=== PATIENT | female | born 1990 | race Caucasian/White ===

== ENCOUNTER 2016-11-15 12:40 | Emergency (ER) | payer SELFPAY ==
[~2016-11-15] VITALS: Ht 162.6 cm; Wt 57.0 kg
[2016-11-15 12:42] VITALS: BP 107/69; PULSE 79; RESP 20; TEMP 98.6; O2SAT 99
[2016-11-15] MEDS ORDERED: PENI250T PO (13:58)
--- NOTE | 2016-11-15 13:58 | PD ---
HPI Chief Complaint: Oral / Dental Pain or Problem Time Seen by Provider: 13:53 Travel History International Travel<30 days: No Contact w/Intl Traveler<30days: No Traveled to known affect area: No History of Present Illness HPI 26-year-old female with chief complaint of right upper dental pain 4 days. Patient reports she has a decayed and cracked tooth at the site. She denies fever, chills, headache. Patient reports the pain as constant, nonradiating. No aggravating or alleviating factors. Severity 6 out of 10. PFSH Past Medical History Medical History: Denies Significant Hx Respiratory: Yes (ASTHMA) ?: Not Social History Tobacco Use: No Allergies-Medications (Allergen,Severity, Reaction): Coded Allergies: No Known Allergies (Unverified , 11/15/16) Review of Systems Except as stated in HPI: all other systems reviewed are Neg Physical Exam Narrative GENERAL: Well-nourished, well-developed patient. SKIN: Focused skin assessment warm/dry. HEAD: Normocephalic. EYES: No scleral icterus. No injection or drainage. NECK: Supple, trachea midline. No JVD or lymphadenopathy. MOUTH: Tooth #2 decayed and fractured with surrounding gum erythema CARDIOVASCULAR: Regular rate and rhythm without murmurs, gallops, or rubs. RESPIRATORY: Breath sounds equal bilaterally. No accessory muscle use. Data Data Last Documented VS Vital Signs Date Time Temp Pulse Resp B/P Pulse Ox O2 Delivery O2 Flow Rate FiO2 11/15/16 12:42 98.6 79 20 107/69 99 Room Air MDM Medical Decision Making Medical Screen Exam Complete: Yes Emergency Medical Condition: Yes Differential Diagnosis Dental caries, dental abscess, dental pain Narrative Course 26-year-old female with chief complaint of right upper dental pain at the site of a decayed and cracked tooth. Symptom onset 4 days ago. Physical exam is reassuring. Patient has widespread dental decay. Tooth #2 is decayed cracked with surrounding gum erythema. Patient put on antibiotics instructed to take Motrin follow-up with dentist. Diagnosis Primary Impression: Pain, dental Referrals: Primary Care Physician Departure Forms: Tests/Procedures, Work Release Enter return to work date: Nov 16, 2016 Additional Instructions: Take [id number] Motrin [id number] milligrams by mouth every 6-8 hours as needed for pain. Take antibiotics as prescribed. Make an appointment for follow-up with dentist. Scripts Penicillin V Potassium 250 Mg [id number] Mg PO Q6H #28 TAB Prov:Shannon Tellez 11/15/16 Disposition: 01 DISCHARGE HOME Condition: Stable Shannon Tellez Nov 15, 2016 13:58
== END 2016-11-15 14:52 | disposition home or self-care (01) ==
LOC: NEPK 12:40
DX: K08.89 Other specified disorders of teeth and supporting structures (principal); K02.9 Dental caries, unspecified; J45.909 Unspecified asthma, uncomplicated
CPT/HCPCS: 99283

== ENCOUNTER 2017-01-30 12:29 | Emergency (ER) | payer OTHER ==
[~2017-01-30] VITALS: Ht 162.6 cm; Wt 57.0 kg
[~2017-01-30 12:29] MED LIST: PENI250T PO
[2017-01-30 12:33] VITALS: BP 133/84; PULSE 71; RESP 12; TEMP 98.2; O2SAT 99
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
[2017-01-30] MEDS ORDERED: PROM25TA10 PO (14:36)
[2017-01-30] MEDS ORDERED: IBUP-232 PO (14:36)
[2017-01-30] MEDS ORDERED: MAPA500T13 PO (14:36)
== END 2017-01-30 14:45 | disposition home or self-care (01) ==
LOC: NEPK 12:29
DX: S06.0X0A Concussion without loss of consciousness, initial encounter (principal); V89.2XXA Person injured in unspecified motor-vehicle accident, traffic, initial encounter
CPT/HCPCS: 70450; 99284

== ENCOUNTER 2017-02-07 15:22 | Emergency (ER) | payer MEDICAID, OTHER ==
[~2017-02-07] VITALS: Ht 162.6 cm; Wt 60.0 kg
[~2017-02-07 15:22] MED LIST changes: +IBUP-232 PO; +MAPA500T13 PO; +PROM25TA10 PO
[2017-02-07 15:25] VITALS: BP 149/83; PULSE 91; RESP 16; TEMP 98.5; O2SAT 98
--- NOTE | 2017-02-07 17:03 | PD ---
HPI Chief Complaint: Abdominal Pain Time Seen by Provider: 16:08 Travel History International Travel<30 days: No Contact w/Intl Traveler<30days: No Traveled to known affect area: No History of Present Illness HPI Patient is 40 years old. She arrives complaining of pain in the left lower quadrant. She reports a diagnosis of tubo-ovarian abscess made at [facility]. She took antibiotics. She does not remember the type of antibiotic however began vomiting and is unable to tolerate antibiotics. She denies abnormal discharge or bleeding. She denies vaginal discharge. Last menstruation was 2 weeks prior. [facility] Past Medical History Respiratory: Yes (ASTHMA) ?: Unknown LMP: JAN 24 Social History Alcohol Use: No Tobacco Use: Yes Substance Use: No Allergies-Medications (Allergen,Severity, Reaction): Coded Allergies: No Known Allergies (Unverified , 11/15/16) Reported Meds & Prescriptions Reported Meds & Active Scripts Active Review of Systems Except as stated in HPI: all other systems reviewed are Neg General / Constitutional: No: Fever Physical Exam Narrative GENERAL: 26-year-old female well-nourished well-developed no acute distress SKIN: Warm and dry. HEAD: Atraumatic. Normocephalic. EYES: Pupils equal and round. No scleral icterus. No injection or drainage. ENT: No nasal bleeding or discharge. Mucous membranes pink and moist. NECK: Trachea midline. No JVD. CARDIOVASCULAR: Regular rate and rhythm. RESPIRATORY: No accessory muscle use. Clear to auscultation. Breath sounds equal bilaterally. GASTROINTESTINAL: Soft. Minimal tenderness to his left side. MUSCULOSKELETAL: Extremities without clubbing, cyanosis, or edema. No obvious deformities. NEUROLOGICAL: Awake and alert. No obvious cranial nerve deficits. Motor grossly within normal limits. Five out of 5 muscle strength in the arms and legs. Normal speech. PSYCHIATRIC: Appropriate mood and affect; insight and judgment normal. Data Data Last Documented VS Vital Signs Date Time Temp Pulse Resp B/P (MAP) Pulse Ox O2 Delivery O2 Flow Rate FiO2 02/07/17 15:25 98.5 91 16 149/83 (105) 98 Vital signs reviewed Orders Orders Complete Blood Count With Diff (02/07/17 16:23) Basic Metabolic Panel (Bmp) (02/07/17 16:23) Gc And Chlamydia Pcr (02/07/17 16:23) Us Pelvis Comp [employer]/Non-Preg (02/07/17 ) Wet Prep Profile (02/07/17 16:23) Ua Includes Microscopic (02/07/17 16:23) Iv Access Insert/Monitor (02/07/17 16:23) Ed Urine Pregnancytest Poc (02/07/17 16:23) [facility] Medical Decision Making Medical Screen Exam Complete: Yes Emergency Medical Condition: Yes Medical Record Reviewed: Yes Differential Diagnosis IUP, UTI, ectopic , ov torsion, appendicitis, TOA, cervicitis, BV, Trichomoniasis, ov cyst, hernia, mittelschmerz, pain from menstruation Narrative Course Blood work including pelvic ultrasound added on. Case discussed with Kyra Haddad to follow up with work up. Gregor Corral MD Feb 07, 2017 17:03
[2017-02-07 17:29] LABS: AUTOMATED NEUTROPHIL # 5.4 TH/MM3 (1.8-7.7); BASOPHIL # 0.1 TH/MM3 (0-0.2); BASOPHIL % 0.9 % (0.0-2.0); EOSINOPHIL # 0.2 TH/MM3 (0-0.4); EOSINOPHIL % 2.7 % (0.0-4.0); HEMATOCRIT 42.5 % (35.0-46.0); HEMO FLAGS DIFF FINAL; LYMPH % 29.3 % (9.0-44.0); LYMPHOCYTE # 2.6 TH/MM3 (1.0-4.8); MEAN CELL VOLUME 91.2 FL (80.0-100.0); MONO % 7.7 % (0.0-8.0); NEUT % 59.4 % (16.0-70.0); PLATELET COUNT 233 TH/MM3 (150-450); RED BLOOD COUNT 4.66 MIL/MM3 (4.00-5.30); RED CELL DISTRIBUTION WIDTH 13.3 % (11.6-17.2)
[2017-02-07 17:30] LABS: BACTERIA, URINE OCC /hpf; BLOOD, URINE NEG (NEG); GLUCOSE,URINE NEG (NEG); KETONE, URINE NEG (NEG); NITRITE,URINE NEG (NEG); SQUAMOUS EPITHELIAL CELL URINE 13 /hpf (0-5); URINE COLOR LIGHT-YELLOW (YELLW/STRAW)
--- NOTE | 2017-02-07 17:36 | PD ---
Physical Exam Date Seen by Provider: Feb 07, 2017 Time Seen by Provider: 17:05 Narrative GENERAL: Well-developed, well-nourished female in no acute distress. Afebrile. Ambulatory. SKIN: Focused skin assessment warm/dry. HEAD: Atraumatic. Normocephalic. EYES: Pupils equal and round. No scleral icterus. No injection or drainage. ENT: No nasal bleeding or discharge. Mucous membranes pink and moist. NECK: Trachea midline. No JVD. CARDIOVASCULAR: Regular rate and rhythm. No murmur appreciated. RESPIRATORY: No accessory muscle use. Clear to auscultation. Breath sounds equal bilaterally. GASTROINTESTINAL: Abdomen soft, nondistended. Minimal tenderness to palpation along his lower quadrant. No peritoneal signs. No rebound tenderness. GENITOURINARY: Normal external genitalia without lesions or erythema. Vaginal vault without blood but with foul-smelling, white drainage. Cervical os was closed without drainage. No cervical motion tenderness. Uterus nontender and nonenlarged. Bilateral adnexa nontender without masses. Data Data Last Documented VS Vital Signs Date Time Temp Pulse Resp B/P (MAP) Pulse Ox O2 Delivery O2 Flow Rate FiO2 02/07/17 15:25 98.5 91 16 149/83 (105) 98 Orders Orders Complete Blood Count With Diff (02/07/17 16:23) Basic Metabolic Panel (Bmp) (02/07/17 16:23) Gc And Chlamydia Pcr (02/07/17 16:23) Wet Prep Profile (02/07/17 16:23) Ua Includes Microscopic (02/07/17 16:23) Iv Access Insert/Monitor (02/07/17 16:23) Ed Urine Pregnancytest Poc (02/07/17 16:23) Us Pelvis Comp W Dop Transvag (02/07/17 ) Azithromycin Powd Pack (Zithromax Powd P (02/07/17 18:15) Ceftriaxone Inj (Rocephin Inj) (02/07/17 18:15) Lidocaine 1% Inj (50 Ml) (Xylocaine 1% I (02/07/17 18:15) Labs Laboratory Tests Test 02/07/17 16:57 02/07/17 17:00 02/07/17 18:01 Urine Color LIGHT-YELLOW Urine Turbidity HAZY Urine pH 7.0 Urine Specific [place] 1.005 Urine Protein NEG mg/dL Urine Glucose (UA) NEG mg/dL Urine Ketones NEG mg/dL Urine Occult Blood NEG Urine Nitrite NEG Urine Bilirubin NEG Urine Urobilinogen LESS THAN 2.0 MG/DL Urine Leukocyte Esterase TRACE Urine RBC 3 /hpf Urine WBC 3 /hpf Urine WBC Clumps FEW Urine Squamous Epithelial Cells 13 /hpf Urine Bacteria OCC /hpf White Blood Count 9.0 TH/MM3 Red Blood Count 4.66 MIL/MM3 Hemoglobin 14.4 GM/DL Hematocrit 42.5 % Mean Corpuscular Volume 91.2 FL Mean Corpuscular Hemoglobin 31.0 PG Mean Corpuscular Hemoglobin Concent 34.0 % Red Cell Distribution Width 13.3 % Platelet Count 233 TH/MM3 Mean Platelet Volume 10.1 FL Neutrophils (%) (Auto) 59.4 % Lymphocytes (%) (Auto) 29.3 % Monocytes (%) (Auto) 7.7 % Eosinophils (%) (Auto) 2.7 % Basophils (%) (Auto) 0.9 % Neutrophils # (Auto) 5.4 TH/MM3 Lymphocytes # (Auto) 2.6 TH/MM3 Monocytes # (Auto) 0.7 TH/MM3 Eosinophils # (Auto) 0.2 TH/MM3 Basophils # (Auto) 0.1 TH/MM3 CBC Comment DIFF FINAL Differential Comment Blood Urea Nitrogen 5 MG/DL Creatinine 0.67 MG/DL Random Glucose 75 MG/DL Calcium Level 8.9 MG/DL Sodium Level 139 MEQ/L Potassium Level 3.7 MEQ/L Chloride Level 105 MEQ/L Carbon Dioxide Level 28.3 MEQ/L Anion Gap 6 MEQ/L Estimat Glomerular Filtration Rate 107 ML/MIN Clue Cells (Wet Prep) NONE SEEN Vaginal Trichomonas (Wet Prep) NONE SEEN Vaginal Yeast (Wet Prep) NONE SEEN MDM Medical Record Reviewed: Yes Supervised Visit with VIRGILIO: Yes Differential Diagnosis Tubo-ovarian abscess, PID, Narrative Course Patient seen by attending physician and signed out to me pending results. Please see his note for further details. In short, 26-year-old female presents to the emergency room for evaluation of left lower quadrant pain for the past 2 weeks. Patient had history of tubo-ovarian abscess on the left side a little over a month ago. She went to another hospital and was treated with antibiotics for 10 days. Patient states they made her extremely nauseous and she could not take the last 3 pills. She does not remember what antibiotics they were. Patient reports her pain improved for a few weeks but then worsened 2 weeks ago. She denies vaginal discharge, nausea, vomiting, fever, chills. Patient states they took her IUD out and she is sexually active but does not believe she is . Last menstrual cycle was January 23. Denies chronic medical conditions or daily medications. Physical exam reveals abdomen soft, nondistended. Minimal tenderness to palpation along his lower quadrant. No peritoneal signs. No rebound tenderness. Normal external genitalia without lesions or erythema. Vaginal vault without blood but with foul-smelling, white drainage. Cervical os was closed without drainage. No cervical motion tenderness. Uterus nontender and nonenlarged. Bilateral adnexa nontender without masses. CBC and CMP are unremarkable. UA shows minimal evidence of urinary tract infection. Ultrasound is negative for tubo-ovarian abscesses. No acute abnormality. Wet prep is negative. GC chlamydia ordered and pending. Patient treated empirically for STDs with azithromycin and ceftriaxone. Patient is stable for outpatient follow-up. She'll be discharged with prescriptions for Ceftin for Macrobid and told to follow up with primary care physician or return for worsening symptoms. She understands and agrees to plan. Diagnosis Primary Impression: Pelvic pain in female Additional Impression: Urinary tract infection Qualified Codes: N30.00 - Acute cystitis without hematuria Referrals: [facility] Primary Care Physician Additional Instruction: Rest and drink plenty of fluids. Macrobid as directed, until gone. Take ibuprofen with food as directed, as needed for pain. Follow-up with a primary care physician. Return to the emergency room for worsening symptoms. Disposition: 01 DISCHARGE HOME Condition: Stable Kyra Haddad Feb 07, 2017 17:36
[2017-02-07 17:46] LABS: BICARBONATE 28.3 MEQ/L (21.0-32.0); POTASSIUM 3.7 MEQ/L (3.5-5.1)
--- NOTE | 2017-02-07 17:52 | RADRPT ---
EXAM DATE/TIME: 02/07/2017 17:07 [facility] COMPARISON: No previous studies available for comparison. INDICATIONS : Pelvic pain. MEDICAL HISTORY : Asthma. SURGICAL HISTORY : None. ENCOUNTER: Initial ACUITY: 4-6 days PAIN SCORE: 4/10 LOCATION: Bilateral pelvis MEASUREMENTS: UTERUS: 8.6 x 5.0 x 3.9 cm ENDOMETRIAL STRIPE: 5 mm RIGHT OVARY: 3.3 x 2.6 x 2.0 cm LEFT OVARY: 3.4 x 2.6 x 2.3 cm FINDINGS: UTERUS: The myometrium has homogeneous echotexture without mass. RIGHT OVARY: Ovary contains no mass or significant cystic lesion. Tiny follicular cysts noted. Blood flow is symme trical. LEFT OVARY: Ovary contains no mass or significant cystic lesion. Tiny follicular cysts noted. Blood flow is symme trical. MISCELLANEOUS: No free fluid. CONCLUSION: Normal examination. Sree Zuniga Jr., MD on February 07, 2017 at 17:49 Board Certified Radiologist. This report was verified electronically.
[2017-02-07] MEDS ORDERED: cefTRIAXone 250 MG VIAL IM ONE (18:15)
[2017-02-07] MEDS ORDERED: AZITHROMYCIN PWD FOR SUSP 1 GM PACKET PO ONE (18:15)
[2017-02-07] MEDS ORDERED: LIDOCAINE HCL 1% 50 ML VIAL IM ONE (18:15)
[2017-02-07] MEDS ORDERED: MACR100C2 PO (18:59)
[2017-02-07 22:05] LABS: CHLAMYDIA PCR NOT DETECTED (NOT DETECT); NEISSERIA PCR NOT DETECTED (NOT DETECT)
== END 2017-02-07 19:47 | disposition home or self-care (01) ==
LOC: NEPD 15:22
DX: R10.2 Pelvic and perineal pain (principal); N30.00 Acute cystitis without hematuria; Z72.0 Tobacco use; Z87.09 Personal history of other diseases of the respiratory system
CPT/HCPCS: 76830; 76856; 80048; 81001; 84703; 85025; 87210; 87491; 87591; 93975; 96372; 99285; J0696